=== PATIENT | male | born 1990 | race Two or more races ===

== ENCOUNTER 2021-01-26 22:37 | Inpatient (IN) | payer BC, OTHER ==
[~2021-01-26] VITALS: Ht 180.3 cm; Wt 114.3 kg
[2021-01-26 23:28] LABS: Basophils # (auto) 0.1 10 ^3/uL (0-0.2); Basophils % (auto) 1.2 % (0.0-2.0); Eosinophils # (auto) 0.2 10 ^3/uL (0-0.8); Eosinophils % (auto) 3.3 % (0.0-7.0); Hematocrit 40.3 % (41.0-53.0); Hemoglobin 15.1 g/dL (13.5-17.5); Lymphocytes # (auto) 2.6 10 ^3/uL (0.4-5.4); Lymphocytes % (auto) 43.8 % (10.0-50.0); Mean Corpuscular Hemoglobin 33.4 pg (28.0-32.0); Mean Corpuscular Hgb Conc. 37.5 g/dL (32.0-36.0); Mean Corpuscular Volume 89.3 fL (80.0-100.0); Monocytes # (auto) 0.4 10 ^3/uL (0-1.3); Monocytes % (auto) 7.3 % (0.0-12.0); Neutrophils # (auto) 2.6 10 ^3/uL (1.6-8.6); Neutrophils % (auto) 44.4 % (37.0-80.0); Nucleated Red Blood Cells % 0.6 %; Platelet Count (auto) 213 10^3/uL (140-450); Red Blood Cells 4.52 10^6/uL (4.5-5.90); Red Cell Distribution Width 13.5 % (11.8-14.3); White Blood Cell 5.8 10^3/uL (4.4-10.8)
[2021-01-27 00:04] LABS: Albumin 3.6 g/dL (3.4-5.0); Anion Gap 11 (5-15); Calcium 7.9 mg/dL (8.5-10.1); Carbon Dioxide 23 mmol/L (21-32); Chloride 100 mmol/L (98-107); Glucose 276 mg/dL (74-106); Magnesium 1.9 mg/dL (1.6-2.6); Potassium 4.2 mmol/L (3.5-5.1); Sodium 134 mmol/L (136-145)
[2021-01-27 00:06] LABS: INR 0.98 (0.9-1.15); Partial Thromboplastin Time 26.5 sec (23.0-31.2)
[2021-01-27 00:08] LABS: Alkaline Phosphatase 117 U/L (45-117); Bilirubin, Total 0.7 mg/dL (0.2-1.0); GFR African American 117 mL/min; GFR Non-African American 96 mL/min; HDL Cholesterol 33 mg/dL (40-59); LDL Cholesterol 96 mg/dL (< 100)
[2021-01-27 00:41] LABS: BUN/Creatinine Ratio 12.5; Blood Urea Nitrogen 12 mg/dL (7-18)
[2021-01-27 00:45] LABS: Alanine Aminotransferase 63 U/L (16-61); Total Protein 7.9 g/dL (6.4-8.2)
[2021-01-27 01:07] LABS: Cholesterol 448 mg/dL (< 200)
[2021-01-27 01:26] LABS: Aspartate Aminotransferase 85 U/L (15-37); Triglycerides 2578 mg/dL (< 150)
[2021-01-27] MEDS ORDERED: TEMAZEPAM 15 MG CAP PO PRN (04:30)
[2021-01-27] MEDS ORDERED: NITROGLYCERIN 0.4 MG SL TAB SL PRN (04:30)
[2021-01-27] MEDS ORDERED: DEXTROSE (50%) 50ML SYRG IV PRN (04:30)
[2021-01-27] MEDS ORDERED: ONDANSETRON HCL 4 MG/2 ML VIAL IV PRN (04:30)
[2021-01-27] MEDS ORDERED: MORPHINE SULF INJ 2 MG/ML SYRINGE 1ML IV PRN (04:30)
[2021-01-27] MEDS ORDERED: ACETAMINOPHEN 325 MG TAB PO PRN (04:30)
[2021-01-27] MEDS: InsuLIN REG 1unit/0.01ml Soln (100units/ml) SC SCH ×2 (06:28→11:19)
[2021-01-27] MEDS: ACCU-CHEK COMFORT CURVE STRIP VI SCH ×2 (06:28→11:19)
[2021-01-27] MEDS ORDERED: LEVOTHYROXINE SODIUM 25 MCG TAB PO SCH (07:00)
[2021-01-27] MEDS ORDERED: LISINOPRIL 10 MG TAB PO SCH (10:00)
[2021-01-27] MEDS ORDERED: FENOFIBRATE 200 MG PO SCH (10:00)
[2021-01-27] MEDS ORDERED: FAMOTIDINE 20 MG TAB PO SCH (10:00)
[2021-01-27] MEDS ORDERED: VASCEPA 2 GM PO SCH (10:00)
[2021-01-27] MEDS ORDERED: GEMFIBROZIL 600 MG TAB PO SCH (11:00)
[2021-01-27 12:37] VITALS: BP 104/75
[2021-01-27] MEDS ORDERED: ATORVASTATIN 20 MG TAB PO SCH (22:00)
== END 2021-01-27 12:39 | disposition home or self-care (01) | DRG 642 ==
LOC: ER 22:41 → TELE 01-27 04:20
PROVIDERS: ADMIT Nurse Practitioner; ATTEND Internal Medicine
DX: E78.1 Pure hyperglyceridemia (principal); E03.9 Hypothyroidism, unspecified; E11.9 Type 2 diabetes mellitus without complications; E66.9 Obesity, unspecified; E78.5 Hyperlipidemia, unspecified; E88.81 Metabolic syndrome and other insulin resistance; I10 Essential (primary) hypertension; R00.2 Palpitations; Z20.822 Contact with and (suspected) exposure to COVID-19; Z68.35 Body mass index [BMI] 35.0-35.9, adult
CPT/HCPCS: 36415; 71046; 80053; 80061; 82150; 82962; 83690; 83735; 83880; 84443; 84484; 85025; 85610; 85730; 87426; 93005; 93306; 96372; G0378